=== PATIENT | male | born 1990 | race Caucasian/White ===

== ENCOUNTER 2019-08-17 13:47 | Emergency (ER) | payer BC, MEDICAID ==
[2019-08-17 14:24] VITALS: BP 148/95
--- NOTE | 2019-08-17 14:29 | ER Document Report ---
ED Skin Rash/Insect Bite/Abscs - General Chief Complaint: Rash Stated Complaint: SKIN RASH Time Seen by Provider: 08/17/19 14:15 Primary Care Provider: JIL KAHN PA-C [NO LOCAL MD] - Follow up as needed Mode of Arrival: Ambulatory Information source: Patient Notes: 28-year-old male presented to ED for rash to bilateral lower extremities. He states it is been there for about 2 days. Patient is alert oriented respirations regular nonlabored speaking in full sentences. He has no pain itching or discomfort to these rashes. They are not raised but they are red and nonblanching. I did consult came and examined the rash. He states this is a nontoxic young person and he needs to follow-up with a primary doctor or flap presser. - HPI Patient complains to provider of: Skin rash/lesion - Bilateral legs Onset: Other - 2 days Onset/Duration: Gradual Quality of pain: No pain Severity: None Pain Level: Denies Skin Character: Rash Identify cause: No Exacerbated by: Denies Relieved by: Denies Similar symptoms previously: No Recently seen / treated by doctor: No - Related Data Allergies/Adverse Reactions: ant Allergy (Uncoded 08/17/19 14:15) Past Medical History - General Information source: Patient - Social History Smoking Status: Current Every Day Smoker Cigarette use (# per day): Yes - Pack per day Smoking Education Provided: Yes - 4 minutes Frequency of alcohol use: Rare Drug Abuse: None Family History: Reviewed & Not Pertinent - Past Medical History Cardiac Medical History: Reports: None Pulmonary Medical History: Reports: None EENT Medical History: Reports: None Neurological Medical History: Reports: None Endocrine Medical History: Reports: None Renal/ Medical History: Reports: None Malignancy Medical History: Reports None GI Medical History: Reports: None Musculoskeletal Medical History: Reports None Skin Medical History: Reports None Psychiatric Medical History: Reports: None Traumatic Medical History: Reports: None Infectious Medical History: Reports: None Past Surgical History: Reports: Other - Pyloric stenosis as a child Review of Systems - Review of Systems Constitutional: No symptoms reported EENT: No symptoms reported Cardiovascular: No symptoms reported Respiratory: No symptoms reported Gastrointestinal: No symptoms reported Genitourinary: No symptoms reported Male Genitourinary: No symptoms reported Musculoskeletal: No symptoms reported Skin: Rash - Nonblanching red rash to bilateral lower extremities Hematologic/Lymphatic: No symptoms reported Neurological/Psychological: No symptoms reported -: Yes All other systems reviewed and negative Physical Exam - Vital signs Vitals: Temp Pulse Resp BP Pulse Ox 98.3 F 85 16 173/95 H 99 08/17/19 13:51 08/17/19 13:51 08/17/19 13:51 08/17/19 13:51 08/17/19 13:51 Interpretation: Normal - General General appearance: Appears well, Alert - HEENT Head: Normocephalic, Atraumatic Eyes: Normal Pupils: PERRL - Respiratory Respiratory status: No respiratory distress Chest status: Nontender Breath sounds: Normal Chest palpation: Normal - Cardiovascular Rhythm: Regular Heart sounds: Normal auscultation Murmur: No - Abdominal Inspection: Normal Distension: No distension Bowel sounds: Normal Tenderness: Nontender Organomegaly: No organomegaly - Back Back: Normal, Nontender - Extremities General upper extremity: Normal inspection, Nontender, Normal color, Normal ROM, Normal temperature General lower extremity: Normal inspection, Nontender, Normal color, Normal ROM, Normal temperature, Normal weight bearing. No: Diego's sign - Neurological Neuro grossly intact: Yes Cognition: Normal Orientation: AAOx4 [place] Coma Scale Eye Opening: Spontaneous Trip Coma Scale Verbal: Oriented Trip Coma Scale Motor: Obeys Commands [place] Coma Scale Total: 15 Speech: Normal Motor strength normal: LUE, RUE, LLE, RLE Sensory: Normal - Psychological Associated symptoms: Normal affect, Normal mood - Skin Skin Temperature: Warm Skin Moisture: Dry Skin Color: Normal Location of irregularity: Extremities Character of irregularity: Erythematous - Nonblanching rash to bilateral lower extremities Irregularity with: Swelling - Patient states he has had mild swelling to both legs for couple weeks.. negative: Tenderness, Inflammation Course - Re-evaluation Re-evalutation: 08/17/19 14:[address] Mederos who came and examined the rash. He states that this is not an emergent rash. He states that should be treated with cortisone cream and martin ve him follow-up with a primary care. His blood pressure was also elevated. He has been instructed to follow-up with primary care for the elevated blood pressure. Patient verbalized understanding and agreement with treatment plan and patient was discharged home. - Vital Signs Vital signs: Temp Pulse Resp BP Pulse Ox 98.3 F 85 16 148/95 H 99 08/17/19 13:51 08/17/19 13:51 08/17/19 13:51 08/17/19 14:24 08/17/19 13:51 Discharge - Discharge Clinical Impression: Rash and nonspecific skin eruption Condition: Stable Disposition: HOME, SELF-CARE Additional Instructions: You were seen today for a nonspecific rash to bilateral lower extremities. You have given you some hydrocortisone cream to use on the rash for the next couple days. Use it twice a day. He is to follow-up with a primary care doctor and/or flap presser or return to the ED for any increasing symptoms or new symptoms that are concerning. FOLLOW-UP CARE: If you have been referred to a physician for follow-up care, call the physicians office for an appointment as you were instructed or within the next two days. If you experience worsening or a significant change in your symptoms, notify the physician immediately or return to the Emergency Department at any time for re-evaluation. Forms: Elevated Blood Pressure, Smoking Cessation Education Referrals: JIL KAHN PA-C [NO LOCAL MD] - Follow up as needed
[2019-08-17] MEDS ORDERED: HYDROCORTISONE 1% OINTMENT 28.35 GM TP SCH ×2 (15:00→18:00)
== END 2019-08-17 14:48 | disposition home or self-care (01) ==
LOC: ER 13:47
DX: R21 Rash and other nonspecific skin eruption (principal); F17.210 Nicotine dependence, cigarettes, uncomplicated; Z71.6 Tobacco abuse counseling; Z91.048 Other nonmedicinal substance allergy status
CPT/HCPCS: 99406; 99282; J3490